=== PATIENT | male | born 1995 | race Caucasian/White ===

== ENCOUNTER 2018-07-30 14:56 | Emergency (ER) | payer SELFPAY ==
[~2018-07-30 14:56] MED LIST: ISOVUE-370 76%-LOCM 1 ML ONE
[2018-07-30 15:42] LABS: #Basophils 0.1 thou/uL (0.0-0.2); #Eosinphils 0.4 thou/uL (0.0-0.7); #Lymphocytes 1.9 thou/uL (1.20-3.40); #Monocytes 0.6 thou/uL (0.11-0.59); #Neutrophils 5.1 thou/uL (1.40-6.50); %Basophils 0.7 % (0.0-1.0); %Eosinophils 5.3 % (0.0-10.0); %Lymphocytes 23.9 % (21.0-51.0); %Monocytes 7.4 % (0.0-10.0); %Neutrophils 62.8 % (42.0-75.0); Hemoglobin 13.7 g/dL (14.0-18.0); Mean Corpuscular HGB CONC 31.6 g/dL (32.0-36.0); Mean Corpuscular Hemoglobin 28.5 pg (27.0-31.0); Mean Platelet Volume 7.5 fL (7.4-10.4); Platelet Count 272 thou/uL (130-400); RBC Distribution Width 11.8 % (11.5-14.5); Red Blood Cell (RBC) Count 4.79 mill/uL (4.70-6.10); White Blood Cell (WBC) Count 8.1 thou/uL (4.8-10.8)
[2018-07-30 16:02] LABS: ALT (SGPT) 16 U/L (8-55); AST (SGOT) 19 U/L (5-34); Albumin 4.4 g/dL (3.5-5.0); Alkaline Phosphatase 68 U/L (40-150); Anion Gap 14 mmol/L (10-20); BUN (Urea Nitrogen) 19 mg/dL (8.9-20.6); Bilirubin, Total 0.2 mg/dL (0.2-1.2); Calc. Creatinine Clearance 0 mL/min (70-130); Calcium 9.9 mg/dL (7.8-10.44); Carbon Dioxide 26 mmol/L (22-29); Chloride 105 mmol/L (98-107); Estimated GFR-MDRD 87; Globulin 3.1 g/dL (2.4-3.5); Glucose 102 mg/dL (70-105); Lipase 10 U/L (8-78); Potassium 3.8 mmol/L (3.5-5.1); Protein, Total 7.5 g/dL (6.0-8.3); Sodium 141 mmol/L (136-145)
--- NOTE | 2018-07-30 17:53 | CT ---
CT ABDOMEN AND PELVIS PERFORMED WITH CONTRAST ENHANCEMENT: Date: 07/30/18 HISTORY: Abdominal pain. COMPARISON: 06/25/16 ultrasound examination of the gallbladder. FINDINGS: The lungs are clear of any infiltrative process. The liver and spleen are within normal limits of size. Pancreas region appears unremarkable. Gallblad eriberto is compressed by a large mass with a low attenuation central component. This measures approximate ly 9.0 x 13.0 cm. It appears to be fairly similar in size to the prior 2017 ultrasound examination. I f this represents a liver lesion, it is very exophytic in nature. It is very difficult to separate th is from the stomach and could be of gastric origin. Right and left adrenal glands, and right and left kidneys are normal in size. No significant periaort ic or mesenteric adenopathy. CT of pelvis was performed with contrast. The appendix is normal. No adenopathy, mass, or free fluid. IMPRESSION: Large, 9.0 x 13.0 cm, mass in the right upper quadrant of the abdomen. This compresses the gallbladde r. It could represent an exophytic lesion from the liver, although it could also be of gastric origin such as a large leiomyoma. Most likely a benign etiology as it is not significantly changed in size since the 2017 study. Findings discussed with Dr. Parsons. CODE CR. POS: PHYLLIS
== END 2018-07-30 17:40 | disposition home or self-care (01) ==
LOC: ERS 14:56
DX: R19.00 Intra-abdominal and pelvic swelling, mass and lump, unspecified site (principal); F32.9 Major depressive disorder, single episode, unspecified; G47.00 Insomnia, unspecified
CPT/HCPCS: 36415; 74177; 80053; 83690; 85025; 96360; Q9966

== ENCOUNTER 2019-02-09 17:50 | Inpatient (IN) | payer SELFPAY ==
[2019-02-09 18:23] LABS: #Eosinphils 0.8 thou/uL (0.0-0.7); #Lymphocytes 1.6 thou/uL (1.20-3.40); #Monocytes 1.3 thou/uL (0.11-0.59); %Basophils 0.2 % (0.0-1.0); %Eosinophils 6.8 % (0.0-10.0); %Lymphocytes 13.6 % (21.0-51.0); %Monocytes 10.9 % (0.0-10.0); %Neutrophils 68.6 % (42.0-75.0); Hemoglobin 12.9 g/dL (14.0-18.0); Mean Corpuscular HGB CONC 32.5 g/dL (32.0-36.0); Mean Corpuscular Hemoglobin 27.5 pg (27.0-31.0); Mean Corpuscular Volume 84.8 fL (78.0-98.0); Mean Platelet Volume 6.6 fL (7.4-10.4); Platelet Count 509 thou/uL (130-400); RBC Distribution Width 11.8 % (11.5-14.5); Red Blood Cell (RBC) Count 4.67 mill/uL (4.70-6.10); White Blood Cell (WBC) Count 11.7 thou/uL (4.8-10.8)
[2019-02-09] MEDS ORDERED: Ondansetron PF 4 MG/2 ML Vial ONE (18:25)
[2019-02-09 18:44] LABS: ALT (SGPT) 42 U/L (8-55); AST (SGOT) 37 U/L (5-34); Albumin 3.9 g/dL (3.5-5.0); Alkaline Phosphatase 69 U/L (40-150); Anion Gap 14 mmol/L (10-20); BUN (Urea Nitrogen) 11 mg/dL (8.9-20.6); Bilirubin, Total 0.4 mg/dL (0.2-1.2); Calc. Creatinine Clearance 0 mL/min (70-130); Calcium 9.6 mg/dL (7.8-10.44); Carbon Dioxide 28 mmol/L (22-29); Chloride 98 mmol/L (98-107); Estimated GFR-MDRD Greater than 90; Globulin 3.1 g/dL (2.4-3.5); Glucose 97 mg/dL (70-105); Lipase 4 U/L (8-78); Potassium 4.3 mmol/L (3.5-5.1); Sodium 136 mmol/L (136-145)
[2019-02-09 18:55] LABS: Acetaminophen Less than 6.0 mcg/mL (10.0-30.0); Alcohol Less than 10 mg/dL (Less than 10); Salicylate Less than 8.0 mg/dL (15.0-30.0)
--- NOTE | 2019-02-09 20:10 | CT ---
CT Abdomen Pelvis W Con History: Abdominal pain Comparison: CT abdomen and pelvis July 2018 Findings: There is a very large mass which appears to emanate from the gastric antrum measuring appro ximately 15 cm in transverse by 4 cm and AP dimension by a craniocaudal dimension of 18 cm. There is extensive peritoneal seeding which is new from the 07/30/2018 exam. Mass effect compresses the portal splenic confluence with posterior displacement of the pancreas. 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 Mass does abut the liver with capsular spreading along the left lobe. There are implants on the sigmoid colon and rectum. There are implants covering the ilium nearly enti rely. Adrenal glands are unremarkable. No hydronephrosis. Spleen is mildly enlarged. The aortoiliac contour is normal. Impression: Very large centrally necrotic mass which appears to emanate from the gastric antrum as de scribed. There is extensive peritoneal seeding throughout the abdomen and pelvis along the entire peritoneum as well as small bowel and portions of the large bowel. Imaging findings are diagnostic of a malignant process such as GI stromal tumor. GI consultation advised as well as surgical consultation. Code: CR
[2019-02-09] MEDS ORDERED: Pantoprazole 40 MG VIAL ONE (20:15)
[2019-02-09 21:31] LABS: Bilirubin Negative (Negative); Blood, Urine Negative (Negative); Clarity Clear (Clear); Glucose, Urine (Dipstick) Normal (Negative); Leukocyte Negative Leu/uL (Negative); Nitrite Negative (Negative); Protein, Urine (Dipstick) Negative (Neg-Trace); Urobilinogen Normal mg/dL (Less than 2)
--- NOTE | 2019-02-09 22:22 | HP ---
PRIMARY CARE PHYSICIAN: [facility]. REASON FOR ADMISSION: Abdominal pain and diarrhea. HISTORY OF PRESENT ILLNESS: A 23-year-old male who has history of gastric mass about 2 years ago which was diagnosed at [facility]. Per the patient, initially he was told that he had hematoma. He had ultrasound and CT scan of the abdomen and pelvis at [facility] and subsequently, he was referred to Dr. Huerta. He has seen Dr. Huerta only once and at that time, the patient's symptomatology abdominal pain improved rapidly and that is why he did not put more attention to it and he did not have any further followup because he cannot afford medical cost. This year in July, he was having abdominal pain and that is why he came to emergency room. At that time, he was found with a 9 x 13 cm mass in the right upper quadrant. That was compression gallbladder at that time. At that time, it was appeared benign etiology because size did not change from 2017 study. The patient did not stay in hospital and he was discharged from emergency room and he was instructed to follow up with Dr. Huerta, but he did not follow up because he cannot afford medical cost. For the last 1 month, he is experiencing increasing abdominal discomfort. He has diarrhea, almost 4 or 5 times liquidy diarrhea without any pus or blood. He lost almost 10 pounds of weight. Today in the emergency room, he has a CT abdomen and pelvis which showing 15 cm x 4 cm large mass as well as extensive peritoneal seeding, which is new from last July. The patient was also having a mass effect and compressive effect from that mass in the abdominal organs. The patient was having vague abdominal discomfort and that is why he came to the hospital. He denies any hematemesis, melena, or hematochezia. PAST MEDICAL HISTORY: Reviewed and negative, but the patient has history of mass since 2017, but he never had any further followup. PAST SURGICAL HISTORY: Oral surgery. PAST PSYCHIATRIC HISTORY: Anxiety, depression, and insomnia since childhood. SOCIAL HISTORY: The patient is abusing marijuana. The patient reports that marijuana helps him with anxiety and depression and it also stimulates his appetite. He has girlfriend. He lives with his girlfriend. He has history of alcohol abuse in the past, but he is not a heavy drinker. He is working in a bar. For last 1 month, he is not drinking at all. He does not have any other illicit drug abuse. He denies any smoking. FAMILY HISTORY: No significant family history of coronary artery disease, stroke, or cancer. ALLERGIES: NO KNOWN DRUG ALLERGIES. CURRENT HOME MEDICATIONS: Zofran p.r.n. basis. EMERGENCY ROOM COURSE: The patient has guaiac-positive stool. He is given Protonix 40 mg IV push and 2 L IV fluid. REVIEW OF SYSTEMS: CONSTITUTIONAL: Negative for weight loss or gain, ability to conduct usual activities. SKIN: Negative for rash, itching. EYES: Negative for double vision, pain. ENT/MOUTH: Negative for nose bleeding, neck stiffness, pain, tenderness. CARDIOVASCULAR: Negative for palpitations, dyspnea on exertion, orthopnea. RESPIRATORY: Negative for shortness of breath, wheezing, cough, hemoptysis, fever or night sweats. GASTROINTESTINAL: Negative for poor appetite, abdominal pain, heartburn, nausea , vomiting, constipation, or diarrhea. GENITOURINARY: Negative for urgency, frequency, dysuria, nocturia. MUSCULOSKELETAL: Negative for pain, swelling. NEUROLOGIC/PSYCHIATRIC: Negative for anxiety, depression. ALLERGY/IMMUNOLOGIC: Negative for skin rash, bleeding tendency. Please see my HPI for pertinent positives and negatives. All other review of systems reviewed and negative except as mentioned in the HPI. PHYSICAL EXAMINATION: VITAL SIGNS: On arrival, blood pressure 145/92, pulse 123, respiratory rate 18, temperature 97.8, saturation 98% on room air. Weight 65 kg. GENERAL: The patient is currently alert, awake. No obvious acute distress, tachycardic. HEAD: Normocephalic, atraumatic. EYES: Pupils round, reactive to light. Extraocular muscles intact. No nystagmus. ENT: Oropharynx within normal limits. Moist mucous membranes. No oral lesion. No pharyngeal erythema. No exudate. NECK: Supple. No JVD. No meningeal signs of irritation. No lymphadenopathy. LUNGS: Clear to auscultation without any rhonchi or rales. CARDIAC: S1, S2 regular. No murmur. No gallop. No rub. ABDOMEN: The patient has diffuse tenderness, bowel sound hypoactive, distention present. Abdominal wall appears hard. BACK: Unremarkable. No CVA tenderness. UPPER EXTREMITIES: Passive movement of all joints are normal. Lower extremity , no edema. Good distal pulsation. SKIN: No skin rash. HEMATOLOGICAL SYSTEM: No lymphadenopathy. PSYCHIATRIC: Normal affect. SIGNIFICANT LABORATORY DATA: CBC; WBC 11.7, hemoglobin 12.9, platelet 509. BMP : Sodium 136, potassium 4.3, chloride 98, carbon dioxide 28, anion gap 14, BUN 11, creatinine 0.88, glucose 97, calcium 9.6. LFT; AST 37, ALT 42, alkaline phosphatase 69, albumin 3.9, lipase 4. Urinalysis; high specific gravity. Serum drug screen negative. CT abdomen and pelvis showing very large centrally necrotic mass, appears to originate from gastric antrum. Extensive peritoneal seeding. ASSESSMENT AND PLAN: 1. Abdominal pain likely due to abdominal mass. 2. Diarrhea, etiology uncertain, but we will rule out infectious etiology, suspected from tumor etiology like neuroendocrine tumor. 3. Sinus tachycardia likely due to volume depletion. The patient will be given IV fluid and pain control. 4. Gastric mass. The patient's gastric mass is enlarging in size and he has no peritoneal metastasis. General Surgery as well as Gastroenterology will be consulted. Oncology will be consulted. The patient may need a tissue diagnosis to decide about treatment plan. 5. Deep venous thrombosis prophylaxis, SCD boots. We will hold on Lovenox therapy because of guaiac-positive stool and large mass. 6. Gastrointestinal prophylaxis, Protonix 40 mg IV daily. 7. Code status, the patient is full code. The patient does not have any surrogate decision maker. 8. Marijuana abuse. DISPOSITION PLAN: Based on clinical course, we are expecting the patient's stay in hospital more than 2 midnights. Plan of care discussed with the patient in detail. Job ID: [id number] MTDD
[2019-02-09] MEDS ORDERED: Loperamide HCl 2 MG CAP PO PRN (22:32)
[2019-02-09] MEDS ORDERED: Senokot S 8.6-50 MG TAB PO PRN (22:32)
[2019-02-09] MEDS ORDERED: Calcium Carbonate 500 MG ChewTAB PO PRN (22:32)
[2019-02-09] MEDS ORDERED: Bisacodyl 10 MG SUPP PR PRN (22:32)
[2019-02-09] MEDS ORDERED: Ondansetron ODT 4 MG TAB PO PRN (22:32)
[2019-02-09] MEDS ORDERED: Morphine 2 MG/ML SYRINGE IVP PRN (22:32)
[2019-02-09] MEDS ORDERED: Ondansetron PF 4 MG/2 ML Vial IVP PRN (22:32)
[2019-02-09] MEDS ORDERED: Acetaminophen 325 MG TAB PO PRN (22:32)
[2019-02-09] MEDS: Sodium Chloride 0.9% 1,000 ML IV SCH (23:13)
[2019-02-10 01:32] VITALS: BMI 23.0
[2019-02-10 06:12] LABS: #Eosinphils 0.6 thou/uL (0.0-0.7); #Lymphocytes 1.1 thou/uL (1.20-3.40); #Monocytes 1.1 thou/uL (0.11-0.59); #Neutrophils 7.1 thou/uL (1.40-6.50); %Basophils 0.1 % (0.0-1.0); %Eosinophils 6.5 % (0.0-10.0); %Lymphocytes 10.7 % (21.0-51.0); %Monocytes 11.1 % (0.0-10.0); %Neutrophils 71.6 % (42.0-75.0); Hemoglobin 11.1 g/dL (14.0-18.0); Mean Corpuscular HGB CONC 31.1 g/dL (32.0-36.0); Mean Corpuscular Hemoglobin 26.6 pg (27.0-31.0); Mean Corpuscular Volume 85.6 fL (78.0-98.0); Mean Platelet Volume 6.9 fL (7.4-10.4); Platelet Count 422 thou/uL (130-400); RBC Distribution Width 11.9 % (11.5-14.5); Red Blood Cell (RBC) Count 4.18 mill/uL (4.70-6.10)
[2019-02-10 06:29] LABS: Anion Gap 14 mmol/L (10-20); BUN (Urea Nitrogen) 6 mg/dL (8.9-20.6); Calc. Creatinine Clearance 149 mL/min (70-130); Calcium 8.3 mg/dL (7.8-10.44); Carbon Dioxide 24 mmol/L (22-29); Chloride 102 mmol/L (98-107); Estimated GFR-MDRD Greater than 90; Glucose 82 mg/dL (70-105); Potassium 3.7 mmol/L (3.5-5.1); Sodium 136 mmol/L (136-145)
[2019-02-10] MEDS: Pantoprazole 40 MG VIAL IVP SCH (10:04)
--- NOTE | 2019-02-10 12:26 | CON ---
DATE OF CONSULTATION: REASON FOR CONSULT: Gastric mass. HISTORY OF PRESENT ILLNESS: Mr. Engel is a 23-year-old gentleman, who presented to the emergency room with abdominal pain. He underwent a CT scan of his abdomen and pelvis, which showed a 15 x 18 cm mass. There was peritoneal seeding throughout the abdomen and pelvis. This mass was originally seen on a CT scan in 2016 when the patient presented here for abdominal discomfort. He was referred to GI as he felt it was hematoma. He did not follow up over the next two years until he presented here in July for abdominal pain. CT once again demonstrated the mass with no change in size. He was referred back to GI, but did not follow up. Over the last few weeks, he has had increasing diarrhea and poor appetite. He does say his stool is black. Occasional night sweats. No other complaints. PAST MEDICAL HISTORY: Gastric mass noted in [address] scan. PAST SURGICAL HISTORY: None. ALLERGIES: NO KNOWN DRUG ALLERGIES. HOME MEDICATIONS: None. FAMILY HISTORY: No history of gastric or colon cancer. SOCIAL HISTORY: Single. Lives with his girlfriend. He uses marijuana. Occasional drinking. No other illicit drug use. REVIEW OF SYSTEMS: A 10-point review of systems is negative except for noted in HPI. PHYSICAL EXAMINATION: VITAL SIGNS: Temperature is 98.8, pulse is 108, respiratory rate 18, and BP is 127/73. He is 98% on room air. GENERAL: Well-developed, well-nourished male, in no acute distress. HEENT: Normocephalic and atraumatic. Pupils are equal and reactive to light. NECK: Supple. CV: Regular rate and rhythm. LUNGS: Clear anterior. ABDOMEN: Firm and mildly tender to palpation. He has large palpable mass throughout his entire abdomen. EXTREMITIES: No clubbing, cyanosis, or edema. SKIN: No rash. Multiple tattoos. HEMATOLOGIC: No petechiae or purpura. NEUROLOGIC: Nonfocal. PSYCH: He is alert, oriented, and appropriate. PERTINENT LABS AND X-RAYS: Current WBCs are 10, hemoglobin 11.1, hematocrit 35.8, and platelet count 422,000. He has 72% neutrophils, 11% lymphocytes, and 11% monocytes. Sodium is 136, potassium 3.7, chloride 102, CO2 is 24, BUN is 6, creatinine 0.72, calcium 8.3, bilirubin 0.4, AST is 37, ALT is 42, alkaline phosphatase is 69, serum total protein 7, albumin 3.9, globulin 3.1, and lipase is 4. Urine is negative for bacteria. Radiology per HPI. 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 DISCUSSION: The patient needs a tissue biopsy to confirm diagnosis. GI has been consulted but will ask CT to biopsy mass . It is unusual for a GIST tumor to be present in a young man and he has no family history. He would be a candidate for chemotherapy. If it is a GIST tumor, he could receive Gleevec neoadjuvantly with possible resection at some point. He needs financial assistance through our services here. They have been notified. All of this has been explained to the patient and case was discussed with Dr. Francisco, will follow his hospital course. Job ID: [id number] MTDD
--- NOTE | 2019-02-10 15:46 | PDOC.HOSPP ---
- Subjective Encounter Date: 02/10/19 Encounter Time: 08:00 Subjective: Pt seen for followup re; abdo mass. c/o abdo pain. c/o diarrhea. - Objective Vital Signs & Weight: Vital Signs (12 hours) Temp Pulse Resp BP Pulse Ox 02/10/19 15:22 98.2 F 105 H 20 133/80 99 02/10/19 11:57 98.1 F 99 18 116/70 97 02/10/19 07:37 98.8 F 108 H 18 127/73 98 02/10/19 04:54 99.0 F 99 16 123/74 99 Weight Weight 147 lb 3 oz I&O: 02/09/19 02/10/19 02/11/19 06:59 06:59 06:59 Intake Total 1100 Balance 1100 Result Diagrams: 02/10/19 05:34 02/10/19 05:34 Additional Labs: Labs and MARs reviewed by [facility] Hospitalist ROS - Review of Systems Cardiovascular: denies: chest pain, palpitations, orthopnea, paroxysmal noc. dyspnea, edema, light headedness Gastrointestinal: reports: abdominal pain, diarrhea, melena. denies: nausea, vomitting, constipation, hematochezia - Medication Medications: Active Medications Generic Name Dose Route Start Last Admin Trade Name Freq PRN Reason Stop Dose Admin Sodium Chloride 1,000 mls @ 100 mls/hr 02/09/19 22:32 02/09/19 23:13 Normal Saline 0.9% IV 1,000 mls .Q10H TRACY Administration Pantoprazole Sodium 40 mg 02/10/19 09:00 02/10/19 10:04 Protonix IVP 40 mg DAILY TRACY Administration Sodium Chloride 10 ml 02/10/19 09:00 02/10/19 10:05 Flush - Normal Saline IVF 10 ml Q12HR TRACY Administration - Exam General Appearance: NAD Eye: anicteric sclera ENT: moist mucosa Neck: supple, no thyromegaly, no lymphadenopathy Heart: RRR Respiratory: CTAB, no wheezes Gastrointestinal: soft, distended Gastrointestinal - other findings: abdominal mass Extremities: no clubbing Skin - other findings: tattoos Neurological: no weakness Psychiatric: normal affect, normal behavior Hosp A/P (1) Abdominal mass Code(s): R19.00 - INTRA-ABD AND PELVIC SWELLING, MASS AND LUMP, UNSP SITE Status: Acute (2) Normocytic anemia Code(s): D64.9 - ANEMIA, UNSPECIFIED Status: Chronic - Plan Await biopsy. Seen by oncology service. Follow blood counts.
[2019-02-10] MEDS ORDERED: PROPOFOL 200 MG/20 ML VIAL ONE (16:06)
[2019-02-10] MEDS: Sodium Chloride 0.9% 1,000 ML IV SCH ×2 (17:57→19:49)
[2019-02-10] MEDS ORDERED: Ketamine 50 MG/ML (10ML VIAL) ONE (21:36)
[2019-02-10] MEDS ORDERED: Promethazine HCl 25 MG/ML VIAL SLOW IVP PRN (22:10)
[2019-02-10] MEDS ORDERED: PACU-Morphine 4MG/ML VIAL SLOW IVP PRN (22:10)
[2019-02-10] MEDS ORDERED: Ondansetron HCl/PF 4 MG/2 ML Vial IVP PRN (22:10)
[2019-02-10] MEDS ORDERED: Promethazine HCl 25 MG/ML VIAL IM PRN (22:10)
[2019-02-10] MEDS ORDERED: HYDROmorphone 2 MG/ML VIAL SLOW IVP PRN (22:10)
[2019-02-11] MEDS: HYDROcodone/Acetaminophen 5/325 mg Tablet PO PRN ×2 (00:15→18:51)
[2019-02-11] MEDS: Zolpidem Tartrate 5 MG TAB PO PRN (02:14)
[2019-02-11] MEDS: Sodium Chloride 0.9% 1,000 ML IV SCH ×3 (02:14→22:50)
--- NOTE | 2019-02-11 04:47 | OP ---
DATE OF PROCEDURE: 02/10/2019 PROCEDURE PERFORMED: Esophagogastroduodenoscopy with biopsy. PREOPERATIVE DIAGNOSIS: A 23-year-old male with abdominal pain, nausea, vomiting. His abdominal CAT scan showed a large mass in the stomach and possibly arising out a gastric antrum by CAT scan. The patient is undergoing esophagogastroduodenoscopy. POSTOPERATIVE DIAGNOSES: 1. Normal esophageal mucosa. 2. Extrinsic compression over the gastric body into the gastric antrum and the stomach appears to be compressed. 3. Normal duodenum. DESCRIPTION OF PROCEDURE: The patient was placed on his left lateral position and was given sedation by Anesthesia Department. A Pentax video gastroscope under direct vision was passed down the oropharynx past the GE junction into the stomach. The esophageal mucosa appeared normal. The GE junction, no pathology. The fundus and cardia, no pathology. The patient appeared to have an extrinsic compression into the stomach and the gastric antrum and lower part of body was involved with deformed lumen. It took us some to get into the gastric antrum because of compression. The pylorus opening appeared to be intact. However, there was extrinsic compression seen over the lower part of gastric body and gastric antrum. The pylorus was wide open. The duodenal bulb, descending duodenum, no pathology. Biopsy was obtained from the gastric body and the antrum. The stomach was decompressed and the scope removed. There was no gastric mass lesion and appeared to have extrinsic compression over the gastric body and gastric antrum. RECOMMENDATION: CT-guided biopsy of the gastric mass. Job ID: [id number] MTDD
[2019-02-11 05:31] LABS: INR-International Normal Ratio 1.1; PTT 29.9 SEC (22.9-36.1); Prothrombin Time 14.1 SEC (12.0-14.7)
--- NOTE | 2019-02-11 08:33 | CON ---
DATE OF CONSULTATION: 02/10/2019 REASON FOR CONSULTATION: Abdominal pain, abdominal mass on CAT scan with possible peritoneal seeding. HISTORY OF PRESENT ILLNESS: Mr. Lawrence Engel is a 23-year-old male, hospitalized through the ER with abdominal pain, nausea, and vomiting. An abdominal CAT scan showed large gastric mass and also what appeared to be peritoneal seeding. The patient had seen me in 2017, was referred to me by Dr. Mario Weiss because of abdominal pain and abnormal CAT scan. He went to the [facility] at that time and had a CAT scan done. The CAT scan was read as possibly liver hemangioma. The lesion is very large. The patient was seen by me and was advised to see a General surgeon.His insurance dictated that usually a referral done by primary care doctor. I did speak to his primary care doctor, Dr. Garcia and advised him to refer the patient to General surgery.. He was also advised to go back and see Dr. Garcia. The patient apparently lost his insurance subsequently. He did not go back to see Dr. Garcia for whatever reason. The patient has done well until June of 2018, when he came to the ER with abdominal pain, nausea, and vomiting. Again, abdominal CAT scan showed a mass measuring 9 x 13 cm over the right upper quadrant. He was advised to come back and see me as an outpatient. But he did not come to see me in the office. He came to the ER today because of abdominal pain, nausea, and vomiting. A repeat abdominal CAT scan shows large mass, possibly in the stomach and multiple peritoneal seeding. I was asked to see the patient because of the above reason. At the time of consultation, he appeared very comfortable. No acute distress. He actually appears very comfortable. His bothersome complaint is that he wants to eat and he does not want to wait for any procedure to be done. He also has history of diarrhea off and on over the last several days. No hematochezia. Denies any fever or night sweats. Stools are watery and mostly are runny. No bleeding or any black stool. He has no relevant history. SOCIAL HISTORY: The patient drank alcohol frequently before. For last 1 month , he is not drinking. No history of smoking. He does smoke marijuana on regular basis. MEDICAL ILLNESSES: Anxiety, depression, and insomnia. PAST SURGICAL HISTORY: Oral surgery in the past. FAMILY HISTORY: No family history of stroke, cancer, or any heart disease. ALLERGIES: NONE. REVIEW OF SYSTEMS: Ten-point system review; CONSTITUTIONAL: No history of fever. No night sweats. Has history of mild weight loss. His exercise tolerance is very good. HEENT: No chronic headache. No dizziness. ENT; no diplopia. No impaired vision. Ears; no hearing loss. No nose bleed. No sore throat. NECK: No stiffness or limitation of movement. LUNGS: No chronic coughing, hemoptysis, or dyspnea. CARDIOVASCULAR: No chest pain. No palpitation. No dyspnea or orthopnea. GI: Abdominal pain, nausea, vomiting, and diarrhea. No hematochezia or any melena. GENITOURINARY: Unremarkable. ENDOCRINE: Unremarkable. MUSCULOSKELETAL: Unremarkable. PHYSICAL EXAMINATION: GENERAL: He appears comfortable. He is in no distress. His most bothersome complaint is he wants to eat and is somewhat moaning and worrying about having to stay in the hospital. He is in no distress. VITAL SIGNS: Temperature 98.2 degrees Fahrenheit, pulse is 106, and blood pressure is 133/80. HEENT: Conjunctivae are clear. NECK: Supple. No adenitis or thyromegaly noted. CARDIOVASCULAR: First and second heart sounds heard. LUNGS: Clear to auscultation. ABDOMEN: Firm and very tight and almost like a rock-hard. He is minimally tender, but no rebound or guarding. Bowel sounds are normal. EXTREMITIES: Reveal no edema. LABORATORY DATA: CBC; WBC 10,000, hemoglobin 11.1, hematocrit 35.8, MCV 85.6, platelet count is 422,000, polymorphs 71, lymphocytes 10, and monocytes 11. Serum chemistries; sodium is 136, potassium 3.7, chloride 102, bicarb 24, BUN is 6, creatinine 0.72, glucose is 82, calcium 8.3, AST 37, ALT 42, alkaline phosphatase 69, and albumin 3.9. CLINICAL IMPRESSION: A 23-year-old male with abdominal pain, nausea, vomiting, and diarrhea. An abdominal CAT scan showed a very large mass, which has been enlarging in size since July of 2018 and also what appears to be peritoneal seeding. The primary source of this mass is unclear, possibly stomach. I did speak to him today about having EGD. He is agreeable to EGD. In the meantime, I will also recommend surgical consult and I am feeling he might need a laparotomy and proper tissue diagnosis. Job ID: [id number] MTDD
[2019-02-11] MEDS: Pantoprazole 40 MG VIAL IVP SCH (09:08)
--- NOTE | 2019-02-11 11:29 | PDOC.MOPN ---
Interval History: mild abdominal discomfort. Eating. BM this am. - Vital Signs Vital Signs: Vital Signs (12 hours) Temp Pulse Resp BP BP Pulse Ox 02/11/19 08:00 98.8 F 108 H 14 127/74 98 02/11/19 05:11 99.1 F 106 H 18 122/75 98 02/11/19 00:03 98.1 F 98 18 136/83 99 Weight Weight 147 lb 3 oz - Physical Exam General: Alert, Oriented x3, No acute distress HEENT: Atraumatic, PERRLA, EOMI, Mucous membr. moist/pink Lungs: Clear to auscultation, Normal air movement Cardiovascular: Regular rate, Normal S1, Normal S2, No murmurs, Gallops, Rubs Abdomen: Normal bowel sounds, Soft, Other (large abdominal mass extends below umbilicus) Extremities: No clubbing, No cyanosis, No edema, Normal pulses, No tenderness/ swelling Skin: No rashes, No breakdown, No significant lesion Neurological: Normal gait, Normal speech, Strength at 5/5 X4 ext, Normal tone, Sensation intact, Cranial nerves 3-12 NL, Reflexes 2+ Psych/Mental Status: Mental status NL, Mood NL - Labs Result Diagrams: 02/10/19 05:34 02/10/19 05:34 Lab results: Laboratory Results - last 24 hr 02/11/19 05:10: PT 14.1, INR 1.1, APTT 29.9 Status: lab reviewed by me A/P - Problem (1) Abdominal mass Current Visit: Yes Code(s): R19.00 - INTRA-ABD AND PELVIC SWELLING, MASS AND LUMP, UNSP SITE Status: Acute - Plan Plan: Await CT guided biopsy for tissue diagnosis. Add colace tylenol for pain.
[2019-02-11] MEDS ORDERED: Docusate 100 MG CAP PO PRN (11:30)
[2019-02-11] MEDS ORDERED: Fentanyl 100 MCG/2 ML VIAL ONE (14:04)
[2019-02-11] MEDS ORDERED: Midazolam HCl 2 mg/2 ml Vial ONE (14:05)
[2019-02-11] MEDS ORDERED: Sodium Bicarbonate 2.5 MEQ/5 ML VIAL ONE (14:06)
--- NOTE | 2019-02-11 16:20 | PDOC.HOSPP ---
- Subjective Encounter Date: 02/11/19 Encounter Time: 08:00 Subjective: Pt seen for followup re: abdominal mass. pain is better. - Objective Vital Signs & Weight: Vital Signs (12 hours) Temp Pulse Resp BP BP Pulse Ox 02/11/19 16:00 98.6 F 83 18 131/81 98 02/11/19 12:00 98.3 F 101 H 18 128/69 98 02/11/19 08:32 98 02/11/19 08:00 98.8 F 108 H 14 127/74 98 02/11/19 05:11 99.1 F 106 H 18 122/75 98 Weight Weight 147 lb 3 oz I&O: 02/10/19 02/11/19 02/12/19 06:59 06:59 06:59 Intake Total 1100 1400 Balance 1100 1400 Result Diagrams: 02/10/19 05:34 02/10/19 05:34 Additional Labs: Labs and MARs reviewed by me. Hospitalist ROS - Review of Systems Cardiovascular: denies: chest pain, palpitations, orthopnea, paroxysmal noc. dyspnea, edema, light headedness Gastrointestinal: reports: abdominal pain. denies: nausea, vomitting, diarrhea , constipation, melena, hematochezia - Medication Medications: Active Medications Generic Name Dose Route Start Last Admin Trade Name Freq PRN Reason Stop Dose Admin Hydrocodone Bitart/Acetaminophen 1 tab 02/09/19 22:32 02/11/19 00:15 [place] 5/325 PO 1 tab Q4H PRN Administration Moderate Pain (4-6) Sodium Chloride 1,000 mls @ 100 mls/hr 02/09/19 22:32 02/11/19 11:27 Normal Saline 0.9% IV 1,000 mls .Q10H TRACY Administration Morphine Sulfate 2 mg 02/09/19 22:32 02/10/19 15:50 Morphine IVP 2 mg Q4H PRN Administration Severe Pain (7-10) Ondansetron HCl 4 mg 02/09/19 22:32 02/11/19 11:27 Zofran Odt PO 4 mg Q6H PRN Administration Nausea/Vomiting Pantoprazole Sodium 40 mg 02/10/19 09:00 02/11/19 09:08 Protonix IVP 40 mg DAILY TRACY Administration Sodium Chloride 10 ml 02/10/19 09:00 02/11/19 09:08 Flush - Normal Saline IVF 10 ml Q12HR TRACY Administration Zolpidem Tartrate 5 mg 02/09/19 22:32 02/11/19 02:14 Ambien PO 5 mg HSPRN PRN Administration Insomnia - Exam General Appearance: NAD Eye: anicteric sclera ENT: moist mucosa Neck: supple Heart: RRR Respiratory: CTAB Gastrointestinal: soft, normal bowel sounds Gastrointestinal - other findings: abdominal mass Extremities: no cyanosis Skin: normal turgor Skin - other findings: tattoos Musculoskeletal: no muscle wasting Psychiatric: normal affect, normal behavior Hosp A/P (1) Abdominal mass Code(s): R19.00 - INTRA-ABD AND PELVIC SWELLING, MASS AND LUMP, UNSP SITE Status: Acute (2) Normocytic anemia Code(s): D64.9 - ANEMIA, UNSPECIFIED Status: Chronic - Plan out of bed/ambulate s/p EGD. For CT-guided biopsy today. Follow path.
--- NOTE | 2019-02-11 16:28 | CT ---
CT-guided abdominal mass biopsy HISTORY: Large abdominal mass. FINDINGS: After explaining the procedure and answering all questions, limited CT imaging the abdomen was performed. Sterile technique, buffered local anesthesia, CT guidance, and an anterior midline approach were used to carefully advance a 17-gauge trocar needle into the periphery of the very large heterogeneous abdominal mass. Position was confirmed with CT. A total of 3 18-gauge core biopsy specimens were obtained and submitted to Dr. Marie from pathology fo r confirmation of specimen adequacy. Needle was removed. No evidence of complication. Patient tolerated the procedure well and was returne d in unchanged condition. IMPRESSION: Technically successful CT-guided biopsy abdominal mass. Pathology is pending.
[2019-02-12] MEDS: Zolpidem Tartrate 5 MG TAB PO PRN (01:17)
[2019-02-12] MEDS: Sodium Chloride 0.9% 1,000 ML IV SCH ×2 (02:17→08:49)
[2019-02-12 07:33] VITALS: TEMP 98.3
[2019-02-12] MEDS: Pantoprazole 40 MG VIAL IVP SCH (08:46)
[2019-02-12 11:19] VITALS: BP 126/77
--- NOTE | 2019-02-12 12:07 | PDOC.MOPN ---
Interval History: No complaints. Wants to go home. - Vital Signs Vital Signs: Vital Signs (12 hours) Temp Pulse Resp BP BP Pulse Ox 02/12/19 11:19 98.3 F 113 H 20 126/77 96 02/12/19 08:00 96 02/12/19 07:32 98.3 F 108 H 20 123/67 96 02/12/19 04:00 99.2 F 118 H 16 111/61 96 02/12/19 00:24 98.3 F 109 H 18 127/77 96 Weight Weight 147 lb 3 oz - Physical Exam General: Alert, Oriented x3, No acute distress HEENT: Atraumatic, PERRLA, EOMI, Mucous membr. moist/pink Lungs: Clear to auscultation, Normal air movement Cardiovascular: Regular rate, Normal S1, Normal S2, No murmurs, Gallops, Rubs Abdomen: Other (large mass) Skin: No rashes, No breakdown, No significant lesion Neurological: Normal gait, Normal speech, Strength at 5/5 X4 ext, Normal tone, Sensation intact, Cranial nerves 3-12 NL, Reflexes 2+ Psych/Mental Status: Mental status NL, Mood NL - Labs Result Diagrams: 02/10/19 05:34 02/10/19 05:34 Status: lab reviewed by me A/P - Problem (1) Abdominal mass Current Visit: Yes Code(s): R19.00 - INTRA-ABD AND PELVIC SWELLING, MASS AND LUMP, UNSP SITE Status: Acute - Plan Plan: biopsy done, path pending. Ok to dc home Follow-up Dr. Francisco Friday02/19/19 at 1:30.
--- NOTE | 2019-02-13 03:03 | DIS ---
DATE OF ADMISSION: 02/09/2019 DATE OF DISCHARGE: 02/12/2019 PRIMARY CARE PROVIDER: Unknown. DISCHARGE DIAGNOSES: 1. Abdominal mass. 2. Normocytic anemia. CONDITION OF THE PATIENT ON DAY OF DISCHARGE: Stable. I assessed Mr. Engel on the day of discharge. He denies any chest pain or shortness of breath. He denies any abdominal pain. Vital signs are stable. S1 and S2 are heard, regular. Lungs are clear to auscultation bilaterally. FOLLOWUP APPOINTMENTS: The patient has an appointment with Dr. Francisco from Oncology Service next week. The patient was strongly advised to keep the appointment. CONSULTATIONS DURING THIS HOSPITALIZATION: Gastroenterology, Dr. Huerta and Oncology, Ms. Delgado. HOSPITAL COURSE: Mr. Engel is a pleasant 23-year-old gentleman who was admitted to [facility] on 02/09/2019, for abdominal mass. Please refer to Dr. Puckett's history and physical note dated 02/09/2019, for further details. He was seen by Oncology and Gastroenterology Services. He underwent EGD on 02/10/2019. He had normal esophageal mucosa, normal duodenum and was found to have extrinsic compression over the gastric body into the gastric antrum. He subsequently underwent CT-guided biopsy of the abdominal mass. Oncology Service has cleared him for discharge. He is advised to follow up with Oncology Service next week. The patient had been noncompliant with followup visits in the past. The risk of missing appointments was discussed with him, including worsening of the mass and potentially even . Many thanks for allowing me to participate in Mr. Engel's care. Please feel free to contact me with any questions or concerns. DISCHARGE DESTINATION: Home. TIME SPENT: Total amount of time spent coordinating this discharge: 32 minutes. Job ID: [id number]
--- NOTE | 2019-02-23 23:21 | PQF ---
[employer] Crystal Reports Winform ViewerSamsonLawrence castillo BENJAMIN Henderson [id number] CLINICAL DOCUMENTATION CLARIFICATION FORM: POST DISCHARGE Addendum to original discharge summary date: ____ Late entry note date: __ DATE: 02/24/2019 ATTN: BENJAMIN VALADEZ Please exercise your independent, professional judgment in responding to the clarification form. 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 Thank You. 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 All Rights Reserved [email or web address] [not provided] MTDD
== END 2019-02-12 13:17 | disposition home or self-care (01) | DRG 376 ==
LOC: ERS 17:50 → SURG B 22:31
PROVIDERS: ADMIT Internal Medicine; ATTEND Internal Medicine
PROC: 0DB78ZX Excision of Stomach, Pylorus, Via Natural or Artificial Opening Endoscopic, Diagnostic (ICD-10-PCS; principal; 2019-02-10)
DX: D49.0 Neoplasm of unspecified behavior of digestive system (principal); F41.9 Anxiety disorder, unspecified; F32.9 Major depressive disorder, single episode, unspecified; G47.00 Insomnia, unspecified; Z79.899 Other long term (current) drug therapy; F12.10 Cannabis abuse, uncomplicated; D64.9 Anemia, unspecified
CPT/HCPCS: 36415; 49180; 74177; 77012; 80048; 80053; 80307; 81003; 82274; 83630; 83690; 85025; 85610; 85730; 87045; 87046; 87324; 87328; 87329; 87427; 87449; 88305; 88312; 88333; 88334; 88341; 88342; 96361; 96374; C9113; J2250; J2270; J2405; J2704; J3010; Q0162; Q9966

== ENCOUNTER 2019-02-24 10:46 | Inpatient (IN) | payer SELFPAY ==
[2019-02-24] MEDS ORDERED: ISOVUE-370 76%-LOCM 1 ML ONE (11:12)
[2019-02-24 11:51] LABS: #Eosinphils 0.4 thou/uL (0.0-0.7); #Lymphocytes 1.2 thou/uL (1.20-3.40); #Monocytes 1.6 thou/uL (0.11-0.59); %Basophils 0.1 % (0.0-1.0); %Eosinophils 3.3 % (0.0-10.0); %Lymphocytes 8.7 % (21.0-51.0); %Neutrophils 75.9 % (42.0-75.0); Hemoglobin 8.6 g/dL (14.0-18.0); Mean Corpuscular HGB CONC 32.5 g/dL (32.0-36.0); Mean Platelet Volume 6.4 fL (7.4-10.4); Platelet Count 586 thou/uL (130-400); RBC Distribution Width 12.1 % (11.5-14.5); Red Blood Cell (RBC) Count 3.17 mill/uL (4.70-6.10); White Blood Cell (WBC) Count 13.1 thou/uL (4.8-10.8)
[2019-02-24 12:10] LABS: ALT (SGPT) 13 U/L (8-55); AST (SGOT) 14 U/L (5-34); Albumin 2.8 g/dL (3.5-5.0); Alkaline Phosphatase 52 U/L (40-150); Anion Gap 18 mmol/L (10-20); BUN (Urea Nitrogen) 17 mg/dL (8.9-20.6); Bilirubin, Total 0.3 mg/dL (0.2-1.2); Calc. Creatinine Clearance 0 mL/min (70-130); Carbon Dioxide 21 mmol/L (22-29); Chloride 98 mmol/L (98-107); Estimated GFR-MDRD Greater than 90; Globulin 2.4 g/dL (2.4-3.5); Glucose 108 mg/dL (70-105); Lipase 8 U/L (8-78); Protein, Total 5.2 g/dL (6.0-8.3); Sodium 133 mmol/L (136-145)
[2019-02-24] MEDS ORDERED: Pantoprazole 40 MG VIAL ONE (12:10)
[2019-02-24] MEDS ORDERED: cefTRIAXone\\ROCEPHIN 2 GM VIAL ONE (12:10)
[2019-02-24] MEDS ORDERED: Acetaminophen 325 MG TAB PO PRN (12:28)
[2019-02-24] MEDS ORDERED: HYDROcodone/Acetaminophen 5/325 mg Tablet PO PRN (12:28)
[2019-02-24] MEDS ORDERED: Calcium Carbonate 500 MG ChewTAB PO PRN (12:28)
[2019-02-24] MEDS ORDERED: Ondansetron ODT 4 MG TAB PO PRN (12:28)
[2019-02-24] MEDS ORDERED: Senokot S 8.6-50 MG TAB PO PRN (12:28)
[2019-02-24] MEDS ORDERED: Ondansetron PF 4 MG/2 ML Vial IVP PRN (12:28)
[2019-02-24] MEDS ORDERED: diphenhydrAMINE 25 MG CAP PO PRN (12:31)
[2019-02-24] MEDS ORDERED: Docusate 100 MG CAP PO PRN (12:31)
[2019-02-24] MEDS ORDERED: Benzonatate 100 MG CAP PO PRN (12:31)
[2019-02-24] MEDS ORDERED: hydrALAZINE 20 MG/ML VIAL SLOW IVP PRN (12:31)
[2019-02-24 12:40] LABS: Bilirubin Negative (Negative); Blood, Urine Negative (Negative); Clarity Clear (Clear); Glucose, Urine (Dipstick) Normal (Negative); Leukocyte Negative Leu/uL (Negative); Nitrite Negative (Negative); Protein, Urine (Dipstick) 50 mg/dL (Neg-Trace); RBC/HPF 0-3 HPF (0-3); Squamous Epithelial None Seen HPF (0-3); Urobilinogen Normal mg/dL (Less than 2)
[2019-02-24 12:56] LABS: Mucous/LPF 1+ LPF (<2+)
[2019-02-24 12:57] LABS: Bacteria/HPF None Seen HPF (None Seen)
--- NOTE | 2019-02-24 12:58 | CT ---
CT ABDOMEN AND PELVIS WITH IV CONTRAST: 02/24/19 INDICATIONS: Abdominal pain. The patient has known abdominal mass which was previously biopsied with CT guidance on 02/11/19. Corre lation made to the CT abdomen and pelvis of 02/09/19. FINDINGS: Images through the lung bases today show increasing bilateral pleural effusions when compared to prio r study. Liver, spleen, and pancreas remain unremarkable. Small volume ascites is again noted in the abdomen, similar in appearance to the prior study. The large heterogeneous mass in the anterior abdomen which was described previously is again seen and does not appear significantly changed in appearance. Origin from the gastric wall is suspected on e prior exam. Refer to pathology from the biopsy of 02/11/19. Peritoneal thickening throughout the anterior abdomen is again seen indicating peritoneal seeding. Sm all bowel loops show diffuse mural thickening, similar to the prior exam. Adrenal glands and kidneys are unremarkable. IMPRESSION: 1. Increasing pleural effusion since prior exam. 2. The large heterogeneous mass in the anterior upper abdomen does not appear significantly nam ged. Diffuse peritoneal thickening is again seen with small volume ascites and diffuse small bowel mu ral thickening all similar in appearance to the prior study. POS: OFF
[2019-02-24 15:37] LABS: Lactic Acid 2.4 mmol/L (0.5-2.2)
[2019-02-24 17:27] VITALS: BMI 21.1
[2019-02-24] MEDS ORDERED: Zolpidem Tartrate 5 MG TAB PO PRN (17:33)
--- NOTE | 2019-02-24 17:37 | PDOC.HHP ---
Hospitalist HPI - History of Present Illness Abdominal pain, black and red blood in vomit and stool History of Present Illness: Mr. Engel is a unfortunate 23-year-old white male with past medical history of gastric neoplasm who presents with vomiting both bright red blood and black blood, black stools, and worsening abdominal pain. Patient was diagnosed with intra-abdominal neoplasm and has been seen in oncology clinic however treatment has not yet started. Patient recently discharged from the hospital and has been having black stools ever since. Patient started feeling worsening abdominal pain and bloating, he also developed vomiting with both black and blood he chunks in his vomitus. I find the patient in the emergency department he is laying flat in moderate distress. The patient is pale and feels very weak. Patient started on protonic drip, admitted to [facility] for further evaluation and treatment. Hospitalist History - Past Medical History Source: patient, family Cardiac: reports: no pertinent history Pulmonary: reports: no pertinent history ILLUSTRATOR SET: reports: no pertinent history Gastrointestinal: reports: GI bleed, Other (Gastric CA) Heme/Onc: reports: Anemia NOS, Cancer Hepatobiliary: reports: no pertinent history Psych: reports: no pertinent history Musculoskeletal: reports: no pertinent history Rheumatologic: reports: no pertinent history Infectious Disease: reports: no pertinent history ENT: reports: no pertinent history Renal/: reports: no pertinent history Endocrine: reports: no pertinent history Dermatology: reports: no pertinent history - Family History Family History: reports: hypertension - Social History Smoking Status: Never smoker Alcohol: reports: Occassional Drugs: reports: marijuana Living Situation: With Family Domestic Violence: Negative Activity level: independent ambulation - Exam General Appearance: ill appearing Eye: PERRL, anicteric sclera ENT: no oropharyngeal lesions, dry oral mucosa Neck: supple, symmetric Heart: no murmur, no gallops Heart - other findings: Rapid regular rate Respiratory: no wheezes, no rales, no ronchi Gastrointestinal: distended, diminished bowl sounds (Firm, distended, tender abdomen diffusely. There is guarding and rigidity.), voluntary guarding Extremities: no edema Skin: no lesions, no rashes Skin - other findings: Tattoos on arms Neurological: CN's grossly intact, normal sensation to touch, no focal deficits Musculoskeletal: generalized weakness Psychiatric: normal affect, A&O x 3 Hospitalist Results - Labs Result Diagrams: 02/24/19 11:35 09/11/19 11:35 Lab results: WBC 13.1 thou/uL (4.8-10.8) H 02/24/19 11:35 Hgb 8.6 g/dL (14.0-18.0) L 02/24/19 11:35 Hct 26.4 % (42.0-52.0) L 02/24/19 11:35 MCV 83.0 fL (78.0-98.0) 02/24/19 11:35 Plt Count 586 thou/uL (130-400) H 02/24/19 11:35 Neutrophils % 75.9 % (42.0-75.0) H 02/24/19 11:35 Sodium 133 mmol/L (136-145) L 02/24/19 11:35 Potassium 4.0 mmol/L (3.5-5.1) 02/24/19 11:35 Chloride 98 mmol/L (98-107) 02/24/19 11:35 Carbon Dioxide 21 mmol/L (22-29) L 02/24/19 11:35 BUN 17 mg/dL (8.9-20.6) 02/24/19 11:35 Creatinine 0.68 mg/dL (0.7-1.3) L 02/24/19 11:35 Glucose 108 mg/dL (70-105) H 02/24/19 11:35 Lactic Acid 2.4 mmol/L (0.5-2.2) H 02/24/19 15:12 Calcium 8.0 mg/dL (7.8-10.44) 02/24/19 11:35 Total Bilirubin 0.3 mg/dL (0.2-1.2) 02/24/19 11:35 AST 14 U/L (5-34) 02/24/19 11:35 ALT 13 U/L (8-55) 02/24/19 11:35 Alkaline Phosphatase 52 U/L (40-150) 02/24/19 11:35 Serum Total Protein 5.2 g/dL (6.0-8.3) L 02/24/19 11:35 Albumin 2.8 g/dL (3.5-5.0) L 02/24/19 11:35 Lipase 8 U/L (8-78) 02/24/19 11:35 Urine Ketones 20 mg/dL (Negative) A 02/24/19 12:03 Urine Blood Negative (Negative) 02/24/19 12:03 Urine Nitrite Negative (Negative) 02/24/19 12:03 Ur Leukocyte Esterase Negative Catrachito/uL (Negative) 02/24/19 12:03 Urine RBC 0-3 HPF (0-3) 02/24/19 12:03 Urine WBC 4-6 HPF (0-3) A 02/24/19 12:03 Ur Squamous Epith Cells None Seen HPF (0-3) 02/24/19 12:03 Urine Bacteria None Seen HPF (None Seen) 02/24/19 12:03 - Radiology Interpretation CT scan - abdomen Status: image reviewed by or Hospitalist H&P A/P - Problem (1) Acute blood loss anemia Code(s): D62 - ACUTE POSTHEMORRHAGIC ANEMIA Status: Acute (2) Acute GI hemorrhage Code(s): K92.2 - GASTROINTESTINAL HEMORRHAGE, UNSPECIFIED Status: Acute (3) Melena Code(s): K92.1 - MELENA Status: Acute (4) Vomiting blood Code(s): K92.0 - HEMATEMESIS Status: Acute (5) Abdominal mass Code(s): R19.00 - INTRA-ABD AND PELVIC SWELLING, MASS AND LUMP, UNSP SITE Status: Acute (6) Normocytic anemia Code(s): D64.9 - ANEMIA, UNSPECIFIED Status: Chronic - Plan Plan: Admit to: IMCU gastroenterology consultation, recommendations appreciated general surgery consultation, recommendations patient oncology consultation, recommendations appreciated protonic drip may require endoscopy for further evaluation and treatment transfuse two units of packed red blood cells for hemoglobin less than 7.0 trend H&H replace electrolytes as needed IV fluid resuscitation symptomatic therapy for nausea and vomiting
[2019-02-24] MEDS ORDERED: Sodium Chloride 0.9% 1,000 ML IV SCH (18:00)
[2019-02-24 20:33] LABS: Hemoglobin 9.8 g/dL (14.0-18.0)
[2019-02-24] MEDS: Pantoprazole 80 MG in Sodium Chloride 0.9% 100 ML IVP SCH (23:33)
[2019-02-25] MEDS: Morphine 4 MG/ML VIAL SLOW IVP PRN ×2 (01:02→05:16)
[2019-02-25 04:27] LABS: Anion Gap 13 mmol/L (10-20); BUN (Urea Nitrogen) 10 mg/dL (8.9-20.6); Calc. Creatinine Clearance 145 mL/min (70-130); Carbon Dioxide 23 mmol/L (22-29); Chloride 101 mmol/L (98-107); Estimated GFR-MDRD Greater than 90; Glucose 87 mg/dL (70-105); Sodium 133 mmol/L (136-145)
[2019-02-25 04:42] LABS: Eosinophils 1 % (0-10); Hemoglobin 9.2 g/dL (14.0-18.0); Hypochromia SLIGHT = 6-15 cells (100X) (0-5/hpf); Lymphocytes 7 % (21-51); MDiff Complete? YES; Mean Corpuscular HGB CONC 32.9 g/dL (32.0-36.0); Mean Corpuscular Hemoglobin 27.5 pg (27.0-31.0); Mean Corpuscular Volume 83.7 fL (78.0-98.0); Mean Platelet Volume 5.9 fL (7.4-10.4); Monocytes 6 % (0-10); Neutrophil 86 % (42-75); Platelet Count 518 thou/uL (130-400); Platelet Morphology Comment Appears Increased; RBC Distribution Width 12.4 % (11.5-14.5); Red Blood Cell (RBC) Count 3.35 mill/uL (4.70-6.10)
[2019-02-25 07:34] VITALS: TEMP 98.5
--- NOTE | 2019-02-25 08:32 | CON ---
DATE OF CONSULTATION: 02/24/2019 HISTORY OF PRESENT ILLNESS: This is a 23-year-old male, known to me from last admission 2 weeks ago. He came to the ER with abdominal pain and mass in abdomen. He underwent EGD at that time, which revealed no pathology except for extrinsic compression. He underwent CT-guided biopsy of the mass which shows possible sarcoma. The specimen was sent to [facility] for 2nd opinion. The patient presents to the ER this morning with nausea, vomiting and vomiting blood and also having black tarry stool. . His last EGD done was 2 weeks ago, which revealed no evidence of acute pathology. His blood culture shows he is anemic at the present time. His CBC done today shows hemoglobin 8.6, hematocrit 26.4, platelet count 586,000. Chem-7 is basically normal with normal BUN. He has no abdominal pain. He is not having nausea or vomiting. He actually feels hungry, he wants to eat something. During the last admission, which was 02/10/2019, he was mildly anemic with hemoglobin 11.1, hematocrit 35.8. No other relevant history. MEDICAL ILLNESSES: 1. Anxiety, depression, insomnia. 2. 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 SOCIAL HISTORY: He used to drink alcohol occasionally. He smokes marijuana on a regular basis. ALLERGIES: NONE. PHYSICAL EXAMINATION: GENERAL: He appears very comfortable, looks very thin, emaciated, in no distress. VITAL SIGNS: Pulse is 120, blood pressure 140/88. HEENT: Conjunctivae are clear. NECK: Supple. No adenitis or thyromegaly noted. CARDIOVASCULAR: Within normal limits. LUNGS: Within normal limits. ABDOMEN: Distended and very hard . Abdomen is nontender. He has a large abdominal mass over the upper abdomen. EXTREMITIES: Reveal no edema. LABORATORY DATA: CBC; WBC 13,100, hemoglobin 8.6, hematocrit 26.4, platelet count 580,000 polymorphs 75, lymphocytes 8, monocytes 12. Chem-7 normal. 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 The final report is pending from [facility]. He presents with hematemesis and melena. The patient had an EGD done 2 weeks ago which revealed no evidence of pathology. I am not sure that some other pathology. RECOMMENDATION: 1. Full liquid diet. 2. Serial H and H. 3. Repeat EGD tomorrow morning. Further recommendation after EGD. Job ID: [id number]
[2019-02-25] MEDS: Pantoprazole 80 MG in Sodium Chloride 0.9% 100 ML IVP SCH (09:55)
--- NOTE | 2019-02-25 11:34 | PDOC.HOSPP ---
- Subjective Subjective: Seen and examined. No longer vomiting blood since I saw him yesterday. Still with black stool. Abdominal pain controlled on current regimen. Slept well. NPO going for endoscopy this AM. - Objective Vital Signs & Weight: Vital Signs (12 hours) Temp Pulse Ox 02/25/19 07:40 100 02/25/19 07:34 98.5 F 02/25/19 04:00 97.6 F 02/24/19 23:43 98.7 F Weight Weight 134 lb 15.825 oz Most Recent Monitor Data Heart Rate from ECG 122 NIBP 161/85 NIBP BP-Mean 110 Respiration from ECG 22 I&O: 02/24/19 02/25/19 02/26/19 06:59 06:59 06:59 Intake Total 883 Balance 883 Result Diagrams: 02/25/19 03:56 02/25/19 03:56 Hospitalist ROS - Review of Systems All other systems reviewed; all pertinent +/- noted in HPI/Subj - Medication Medications: Active Medications Generic Name Dose Route Start Last Admin Trade Name Moq PRN Reason Stop Dose Admin Pantoprazole Sodium 80 mg/ 100 mls @ 10 mls/hr 02/24/19 13:30 02/25/19 09:55 Sodium Chloride IVP 100 mls INF TRACY Administration Sodium Chloride 1,000 mls @ 50 mls/hr 02/24/19 18:00 02/24/19 18:06 Normal Saline 0.9% IV 1,000 mls .Q20H TRACY Administration Morphine Sulfate 4 mg 02/24/19 12:31 02/25/19 05:16 Morphine SLOW IVP 4 mg Q4H PRN Administration Moderate to Severe Pain (6-10) Zolpidem Tartrate 5 mg 02/24/19 17:33 02/24/19 23:33 Ambien PO 5 mg HSPRN PRN Administration Insomnia - Exam General Appearance: NAD, awake alert Eye: anicteric sclera ENT: normocephalic atraumatic, dry oral mucosa Neck: supple, symmetric, no lymphadenopathy Heart: no murmur, no gallops, no rubs Heart - other findings: Rapid regular rate Respiratory: CTAB, no wheezes, no rales, no ronchi Gastrointestinal: no hepatomegaly, tender to palpation, distended, voluntary guarding Gastrointestinal - other findings: Firm/ rigid. Involuntary guarding. Distended Extremities: no edema Skin: no lesions, no rashes Skin - other findings: Tattoos on arms Neurological: CN's grossly intact, normal sensation to touch, no weakness, no focal deficits Psychiatric: normal affect, A&O x 3 Hosp A/P (1) Acute blood loss anemia Code(s): D62 - ACUTE POSTHEMORRHAGIC ANEMIA Status: Acute (2) Acute GI hemorrhage Code(s): K92.2 - GASTROINTESTINAL HEMORRHAGE, UNSPECIFIED Status: Acute (3) Melena Code(s): K92.1 - MELENA Status: Acute (4) Vomiting blood Code(s): K92.0 - HEMATEMESIS Status: Acute (5) Abdominal mass Code(s): R19.00 - INTRA-ABD AND PELVIC SWELLING, MASS AND LUMP, UNSP SITE Status: Acute (6) Normocytic anemia Code(s): D64.9 - ANEMIA, UNSPECIFIED Status: Chronic - Plan Plan: IMCU GI consultation, recommendations appreciated General surgery consultation, recommendations appreciated Oncology consultation, recommendations appreciated Protonix drip EGD this AM Transfuse 2 units of PRBC for Hgb <7.0 IV fluids Remains with tachycardia and on the dry side Replace electrolytes as needed Symptomatic therapy for N/v GI PPX - Protonix drip DVT PPX - SCDs
--- NOTE | 2019-02-25 12:21 | CON ---
DATE OF CONSULTATION: REASON FOR CONSULT: Sarcoma. HISTORY OF PRESENT ILLNESS: Mr. Bravo is an unfortunate 23-year-old gentleman, who initially presented in 2017 with abdominal pain, where he had a CT scan showing a 9 x 13 cm abdominal mass. He was referred to Dr. Velarde and according to his records, the mass was a possible liver hemangioma. Dr. Velarde referred him to General Surgery. However, his insurance at the time required his primary care to make the referral. Unfortunately, he did not follow up with anyone and presented to the ER in July of 2018. The CT scan showed the mass measuring 9 x 13 with no significant change. He was again instructed to follow up with PCP, but this did not happen. He eventually developed difficulty eating, nausea, abdominal pain, and explosive diarrhea, so again presented to the ER on 02/09/2019. The CT scan showed a very large centrally necrotic mass that appears to emanate from the gastric antrum. It was measuring 15 x 4 x 18 cm. There was extensive peritoneal seeding throughout the abdomen and pelvis along the entire perineum as well as the small and large bowel. He had a biopsy performed and preliminary path shows sarcoma. Path was sent to [facility] for consultation. He presented again to this facility yesterday with hemoptysis. He states he was having bright red blood with emesis, clots the size of peaches. His hemoglobin on admission was 8.6. He was transfused [address] Velarde has seen the patient and is planning an upper endoscopy today. We were asked to see the patient regarding his sarcoma. PAST MEDICAL HISTORY: Gastric mass on CT scan in 2017. PAST SURGICAL HISTORY: Oral surgery, EGD, and a CT-guided biopsy of his abdominal mass. ALLERGIES: NO KNOWN DRUG ALLERGIES. HOME MEDICATIONS: Tylenol. FAMILY HISTORY: Grandfather had prostate cancer. SOCIAL HISTORY: Single, lives with his girlfriend. One-half pack history of smoking. Admits to occasional drinking and marijuana use. REVIEW OF SYSTEMS: CONSTITUTIONAL: Positive for fatigue, weight loss, and poor appetite. EYES: No blurred or double vision. ENT: No pain, hoarseness, sore throat, or dysphagia. CV: No chest pain, palpitations, or syncope. RESPIRATORY: No shortness of breath, dyspnea on exertion, or orthopnea. GI: Positive for nausea, vomiting, diarrhea, or abdominal pain. : Positive for back pain. SKIN: No rash or pruritus. HEMATOLOGIC: Positive for bleeding. NEUROLOGIC: No weakness, headache, numbness, tingling, or seizure activity. PSYCH: Positive for depression. PHYSICAL EXAMINATION: VITAL SIGNS: Temperature is 98.5, pulse is 122, respiratory rate 22, and BP is 161/85. He is 100% on room air. GENERAL: Well-developed, well-nourished male, in no acute distress. HEENT: Normocephalic and atraumatic. Pupils are equal and reactive to light. NECK: Supple. CV: Regular rate and rhythm. He has tachycardia. LUNGS: Clear to auscultation. ABDOMEN: He has a very large firm mass taking up the entirety of his abdomen. EXTREMITIES: No clubbing, cyanosis, or edema. SKIN: No rash. HEMATOLOGIC: No petechiae or purpura. NEUROLOGIC: Nonfocal. PSYCH: He is alert, oriented, and appropriate. PERTINENT LABS AND X-RAYS: WBCs are 11, hemoglobin 9.2, hematocrit 28.0, and platelet count 518,000. He has 86% neutrophils and 7% lymphocytes. Sodium is 133, potassium is 4.0, chloride is 101, CO2 is 23, BUN is 10, creatinine is 0.68, lactic acid is 2.4, calcium is 8.0, bilirubin is 0.3, AST is 14, ALT is 13, alkaline phosphatase is 52, serum total protein is 5.2, albumin is 2.8, globulin is 2.4, and lipase is 8. Urine is negative for bacteria. ASSESSMENT: 1. Gastric mass, high-grade sarcoma. 2. Upper gastrointestinal bleeding. DISCUSSION: The patient is scheduled for upper endoscopy this morning. His presentation is unusual for high-grade sarcoma given its stability in size. Preliminary path does not appear to be a GIST. [facility] consultation is still currently pending. The patient is now having bleeding likely from this sarcoma. We recommend transfer to [facility] for further assistance with diagnosis and treatment. This was discussed with the patient, who is in agreement. We will initiate transfer and provide supportive care. Recommend we will proceed with the upper endoscopy. He was due for a PET scan tomorrow and that will be rescheduled as well. Discussed with Dr. Francisco Thank you for consult on this unfortunate young man. Job ID: [id number] [facility]
--- NOTE | 2019-02-25 19:49 | OP ---
DATE OF PROCEDURE: 02/25/2019 PROCEDURES PERFORMED: Esophagogastroduodenoscopy with control of hemorrhage. PREOPERATIVE DIAGNOSES: Gastrointestinal bleed and anemia of acute blood loss. DESCRIPTION OF PROCEDURE: Informed consent was obtained from the patient. He was sedated with total intravenous anesthesia. A bite block was placed and the endoscope was advanced easily to the second portion of the duodenum and retroflexion was performed in the stomach. The esophagus was normal. The GE junction was normal. The stomach had a large mass compressing the antrum of the stomach. There was an ulcer at the apex of the mass in the antrum of the stomach. This had mild oozing of blood from the ulcer edge. The edge of the ulcer was lifted with a 10-Sy[place] Gold probe and it was felt there may be a mucosal vessel there, from which the bleeding was slowly oozing from and this was cauterized with a 10-Syrian Gold probe. Really more of the oozing came from between the crease of the ulcerated mass and the remaining mucosa and this is not endoscopically treatable. There was a second small ulcer along the mass as well. The duodenum was normal. Retroflex views in the stomach were normal. IMPRESSION: Large antral mass compressing the antrum of the stomach with two ulcers in the mucosa around the mass. One of these had mild active bleeding and surface vessels along the edge of the ulcer were cauterized with a 10-Syrian Gold probe. However, some of the bleeding is coming from deeper within the crease between the mass and the ulcer edge that will not be ultimately endoscopically treatable. RECOMMENDATIONS: 1. Discussed options with Oncology. 2. Surgical options are appeared to be limited due to the extensive disease. 3. Proton pump inhibitor. Job ID: [id number]
[2019-02-25] MEDS ORDERED: Pantoprazole 40 MG VIAL IVP SCH (21:00)
--- NOTE | 2019-02-26 09:47 | DIS ---
DATE OF ADMISSION: 02/24/2019 DATE OF DISCHARGE: 02/25/2019 REASON FOR HOSPITALIZATION: Worsening abdominal pain and GI bleeding. 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 PROCEDURES PERFORMED/TREATMENTS RENDERED: The patient was seen and evaluated by Gastroenterology and had upper endoscopy, please see full operative report for details. CONDITION ON DISCHARGE: Guarded. SPECIFIC INSTRUCTIONS FOR THE PATIENT/FAMILY: 1. The patient is recommended to be transferred immediately to [facility]. 2. The patient is recommended to have all future care coordinated by admitting physician at [facility] with the following consultations, Gastroenterology, Oncology, Surgery. 3. The patient is recommended to take all medications as directed, to be re-evaluated by admitting physician and adjusted appropriately. 4. The patient is recommended to follow up with all outpatient followup for resolution of gastric cancer. DISCHARGE MEDICATIONS: Please see full discharge medication list for details. 1. Protonix 40 mg IV push q.12 hours. 2. Zofran 4 mg p.o. q.6 hours p.r.n. nausea, vomiting. 3. Zofran 4 mg IV push q.6 hours p.r.n. nausea, vomiting, if not tolerating oral. 4. Tylenol regular strength 650 mg q.4 hours p.r.n. pain. HOSPITAL COURSE: Mr. Engel is a pleasant 23-year-old gentleman who presents to [facility] on 02/24/2019 with GI bleeding. The patient was evaluated by Oncology and Gastroenterology, please see full consultation and progress notes for details. The patient went for upper endoscopy on 02/25/2019, please see full operative report for details. The patient was stabilized and recommended safe for transfer to higher level of care. The patient was accepted at [facility] on 02/25/2019. The patient was recommended to transport immediately to [facility]. All future care to be dictated by admitting physician and would benefit from consultations including Gastroenterology, Oncology, and possibly General Surgery. The patient is recommended to take all medications as directed, to be re-evaluated by admitting physician. The patient recommended to complete a full course of inpatient therapy and outpatient therapy for resolution of gastric cancer. Greater than 39 minutes spent coordinating care and discharge process for this patient. Job ID: [id number]
--- NOTE | 2019-02-27 14:56 | EKG ---
Test Reason : ABD PAIN Blood Pressure : / mmHG Vent. Rate : 110 BPM Atrial Rate : 110 BPM P-R Int : 130 ms QRS Dur : 082 ms QT Int : 330 ms P-R-T Axes : 065 062 044 degrees QTc Int : 446 ms Sinus tachycardia Possible Left atrial enlargement Nonspecific T wave abnormality Abnormal ECG Confirmed by SUMA INFANTE M.D. ([id number]), acquisitions editor LILLI RAMIREZ ([id number]) on 02/27/2019 2:56:08 PM Referred By: Confirmed By:SUMA INFANTE M.D.
== END 2019-02-25 15:14 | disposition short-term general hospital (02) | DRG 378 ==
LOC: ERS 10:46 → ERHOLD 12:49 → IMCU/EMU 12:49
PROVIDERS: ADMIT Internal Medicine; ATTEND Internal Medicine
PROC: 30233N1 Transfusion of Nonautologous Red Blood Cells into Peripheral Vein, Percutaneous Approach (ICD-10-PCS; 2019-02-24)
PROC: 0W3P8ZZ Control Bleeding in Gastrointestinal Tract, Via Natural or Artificial Opening Endoscopic (ICD-10-PCS; principal; 2019-02-25)
DX: K25.4 Chronic or unspecified gastric ulcer with hemorrhage (principal); D62 Acute posthemorrhagic anemia; C49.4 Malignant neoplasm of connective and soft tissue of abdomen; F41.9 Anxiety disorder, unspecified; F32.9 Major depressive disorder, single episode, unspecified; G47.33 Obstructive sleep apnea (adult) (pediatric); Z87.891 Personal history of nicotine dependence
CPT/HCPCS: 36415; 36430; 74177; 80048; 80053; 81003; 81015; 83605; 83690; 85025; 86850; 86900; 86901; 93005; 96361; 96365; 96366; 96367; 96376; C9113; J0696; J2270; J3490; P9016; Q9966